=== PATIENT | male | born 1975 | race Hispanic/Latino ===

== ENCOUNTER → 2019-03-26 | Outpatient (CLI) | payer OTHER | END | disposition home or self-care (01) | LOC: RAH 09:07 | PROVIDERS: ATTEND Internal Medicine | DX: K76.0 Fatty (change of) liver, not elsewhere classified (principal); N32.89 Other specified disorders of bladder; M54.5 Low back pain; N50.819 Testicular pain, unspecified; N39.0 Urinary tract infection, site not specified | CPT/HCPCS: 72100; 76700; 76870 ==